=== PATIENT | male | born 1965 | race Caucasian/White ===

== ENCOUNTER 2016-05-28 11:00 | Observation (INO) | payer MEDICARE, MEDICAID ==
[2016-05-28 11:31] VITALS: BMI 24.3
[2016-05-28 11:50] LABS: ALL NEG? NO
[2016-05-28 12:05] LABS: AUTOMATED BASOPHIL 0.2 % (0-2); AUTOMATED MONOCYTE 9.8 % (3-10); MPV 7.9 fL (7.4-10.4)
[2016-05-28 12:12] LABS: LEUKOCYTES/URINE NEG (NEGATIVE); NITRITE/URINE NEG (NEGATIVE); RBC/URINE 0-2 (0-2); URINE OCCULT BLOOD 2+ (NEG/TRACE); WBC/URINE 0-2 (0-2)
[2016-05-28 12:14] LABS: MDMA* *POSITIVE* (NEGATIVE); METHAMPHETAMINES *POSITIVE* (NEGATIVE); OXYCODONE NEG (NEGATIVE)
[2016-05-28 12:29] LABS: BLOOD UREA NITROGEN 65 MG/DL (9-20); CALCIUM 8.7 MG/DL (8.4-10.2); CALCULATED OSMOLALITY 297 MOs/Kg (270-290); CHLORIDE 102 mEq/L (98-107); ETOH-MGDL < 10 mg/dL; GLUCOSE 182 MG/DL (70-99); SODIUM LEVEL 142 mEq/L (137-146)
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
[2016-05-28] MEDS ORDERED: MAGNESIUM HYDROXIDE 30 ML BOTTLE PO PRN (15:13)
[2016-05-28] MEDS ORDERED: ONDANSETRON HCL 4 MG ODT TAB PO PRN (15:13)
[2016-05-28] MEDS ORDERED: LORAZEPAM 1 MG TAB PO PRN (15:13)
[2016-05-28] MEDS ORDERED: IBUPROFEN 400 MG TAB PO PRN (15:13)
[2016-05-28] MEDS ORDERED: ZOLPIDEM TARTRATE 5 MG TAB PO PRN (15:13)
[2016-05-28] MEDS ORDERED: Aluminum;Magnesium;Simethicone 30 ML UDC PO PRN (15:13)
[2016-05-28] MEDS ORDERED: NS 1,000 ML IV ONE (15:14)
[2016-05-28] MEDS ORDERED: NICOTINE 21 MG PATCH TOP SCH (16:00)
[2016-05-28] MEDS ORDERED: FLUTICASONE PROPIONATE 16 GM BOT NAS SCH (16:00)
[2016-05-28] MEDS ORDERED: RALTEGRAVIR 400 MG TAB PO SCH (21:00)
[2016-05-29 00:43] VITALS: BP 119/63; PULSE 66; TEMP 99
[2016-05-29] MEDS ORDERED: [UNRECOGNIZED DRUG - OTHER] PO SCH (09:00)
[2016-05-29] MEDS ORDERED: DOXYCYCLINE 100 MG/TAB PO SCH (09:00)
[2016-05-29] MEDS ORDERED: DOXYCYCLINE MONOHYDRATE 100 MG PO SCH (09:00)
[2016-05-29] MEDS ORDERED: FLUTICASONE PROPIONATE 16 GM BOT NAS SCH (09:00)
[2016-05-29] MEDS ORDERED: VALACYCLOVIR HCL 1000 MG PO SCH (09:00)
[2016-05-29] MEDS ORDERED: VALACYCLOVIR HCL 500 MG CAPLET PO SCH (09:00)
== END 2016-05-29 01:36 | disposition home or self-care (01) ==
LOC: ED 11:00 → EDINP 15:12 → TUOBSINP 17:23
PROVIDERS: ADMIT Physician Assistant Medical; ATTEND Physician Assistant Medical
DX: F19.10 Other psychoactive substance abuse, uncomplicated (principal); B20 Human immunodeficiency virus [HIV] disease; F23 Brief psychotic disorder; F17.210 Nicotine dependence, cigarettes, uncomplicated; Z79.899 Other long term (current) drug therapy
CPT/HCPCS: 36415; 80053; 80307; 81001; 85025; 86361; 86592; 87536; 96360; 99284; A9270; G0378; J3490

== ENCOUNTER 2016-06-16 07:44 | Emergency (ER) | payer MEDICARE, MEDICAID ==
[2016-06-16] MEDS ORDERED: KETOROLAC TROMETHAMINE 10 MG TAB PO ONE (07:52)
[2016-06-16] MEDS ORDERED: PREDNISONE 20 MG TAB PO ONE (07:52)
--- NOTE | 2016-06-16 07:54 | EDPRACDOC ---
- General Information Chief Complaint: Shoulder Injury Stated Complaint: LT SHOULDER PAIN Time Seen by Provider: 06/16/16 07:49 Home Medications: Home Medications Doxycycline Monohydrate [Monodox] 100 mg PO DAILY 05/28/16 Emtricitabine/Tenofovir [Truvada 200 mg-300 mg Tablet] 1 tab PO DAILY 05/28/16 Fluticasone Propionate [Flonase] 1 - 2 spray BIA DAILY 05/28/16 Raltegravir Potassium [Isentress] 400 mg PO BID 05/28/16 Valacyclovir HCl [Valtrex] 1,000 mg PO DAILY 05/28/16 Ketorolac Tromethamine [Toradol] 10 mg PO Q6H PRN #20 tab 06/16/16 Allergies/Adverse Reactions: Allergies Allergy/AdvReac Type Severity Reaction Status Date / Time codeine Allergy Nausea/Vomi Verified 06/16/16 07:54 ting - History of Present Illness HPI: PATIENT FELL ON LEFT SHOULDER PAIN OVER EDGE OF ACROMION EVER SINCE. WORSE WITH MOVEMENT. Description: Reports: With Use Location: Reports: Left Circumstances: Reports: Fall Relevant History: Reports: None Tetanus Up To Date?: Yes Dominant Hand: Right Pain Severity: Mild Able to Move Shoulder?: Yes Associated Signs & Symptoms: Reports: None ED Past Medical History - History Reviewed Yes Nurses notes reviewed and agree except as marked Travel Outside of [place] in the Last 3 Months?: No - Patient Medical History Psychological History: Denies: Depression Systemic History: Reports: HIV - Social Medical History Smoking Status: Heavy tobacco smoker (5 or more cigarettes/day or daily pipe/ cigar) ETOH: None Substance Abuse: None Lives With: Family Lives In: Home EDM Review of Systems - Review of Systems ROS Negative Except as Marked: Yes All systems reviewed and were negative except as marked Constitutional: No Symptoms Reported. negative: Fever, Chills, Weakness, Fatigue, Loss of Appetite Eyes: No Symptoms Reported. negative: Redness, Blurred Vision, Double Vision, Discharge, Pain, Light Sensitive, Photophobia Ears: No Symptoms Reported. negative: Pain, Hearing Loss, Drainage, Ear Pulling Throat: No Symptoms Reported. negative: Pain, Swelling Nose: No Symptoms Reported. negative: Congestion, Bleeding, Discharge, Injection, Swelling, Deformity, Ecchymosis, Tender, Abrasion, Laceration Mouth: No Symptoms Reported. negative: Pain, Drooling Respiratory: No Symptoms Reported. negative: Cough, Brassy Cough, Barky Cough, Shortness of Breath, Wheezing, Hemoptysis Cardiovascular: No Symptoms Reported. negative: Chest Pain, Palpitations, Syncope, Edema, Orthopnea, PND, Skin Mottling, Cyanosis Gastrointestinal: No Symptoms Reported. negative: Pain, Constipation, Nausea, Vomiting, Diarrhea, Melena, Formula Intolerance Genitourinary: No Symptoms Reported. negative: Dysuria, Hematuria, Frequency, Discharge, Bleeding, Testicular Pain, Neurological: No Symptoms Reported. negative: Headache, Dizziness, Seizure, Numbness, Weakness, Speech Difficulty, Gait Difficulty Musculoskeletal: Shoulder. negative: Arm, Ankle, Back, Chestwall, Elbow, Forearm, Femur, Foot, Hand, Hip, Knee, Leg, Neck, Pelvis, Ribs, Wrist Integumentary: No Symptoms Reported. negative: Itching, Rash, Bruising, Wound Allergic/Immunologic: No Symptoms Reported. negative: Hives, Itching Hematologic: No Symptoms Reported. negative: Lymphadenopathy, Easy Bruising, Easy Bleeding Endocrine: No Symptoms Reported. negative: Weight Gain, Weight Loss Psychiatric: No Symptoms Reported. negative: Anxiety, Depression, Hallucinations, Insomnia, Suicidal - Physical Exam Constitutional: Alert (Awake), No apparent distress Oriented to: Time, Person, Place Last recorded Vital Signs: Oxygen Pulse Oxygen Saturation O2 Device Oxygen Flow Rate Fraction of Inspired Oxygen ( FIO2) - HEENT Head: Normal ( normocephalic) Eye Exam: Normal (PERRL, EOMI, Sclera white) Oropharynx: Normal (Pharynx:Moist without exudate,Gums-no swelling) Tympanic Membrane: Normal ENT EAC: Normal TMJ: Normal Nose: No Symptoms Reported (septum midline) Neck: Normal (FROM, trachea at midline) - Respiratory/Cardiovascular Respiratory: Normal - CTA (BBS clear to auscultation without adventitious sounds ) Cardiovascular: Normal (RRR without murmur, gallop or rub) - GI Auscultation: Normal (NABS) Palpation: Normal (Soft,No rebound or guarding, non distended) Tenderness: Non tender Kent's Sign: Negative - Musculoskeletal Back: Normal (Non-Tender) Extremities: Normal (Normal tone, Pulses 2+ No cyanosis or edema, FROM) - Integumentary Skin: Normal, Warm, Dry Lymphatics: Normal (no adenopathy) - Neurologic Memory Impaired: Normal Motor Function: Normal (Normal tone, Pulses 2+ No cyanosis or edema, FROM) Cranial Nerve: Normal (CN II-X11 intact sensation, strength 5/5) Cerebellar: Normal Mood Description: Normal Perception: Normal ED Shoulder Problem Exam - Musculoskeletal Clavicle: Normal Shoulder: Limited ROM (TENDER JUST DISTAL TO ACROMION) Drop arm test: Negative Impingement test: Negative Arm: Normal Distal Function/Circulation: Normal Decision Time to Discharge: 08:11 - Departure Yes I personally saw and evaluated the patient. Disposition: Home Condition: Good Final Diagnosis: Injury of left rotator cuff Qualifiers: Encounter type: initial encounter Qualified Code(s): S46.002A - Unspecified injury of muscle(s) and tendon(s) of the rotator cuff of left shoulder, initial encounter Instructions: Rotator Cuff Injury (ED) Education/Counseling Given To: Patient Education/Counseling Given Regarding: Diagnosis, Treatment, Prognosis, Follow Up Referrals: None,No Provider [Primary Care Provider] - One Week Sujit Bacon MD [Staff Physician] - One Week Prescriptions: Ketorolac Tromethamine [Toradol] 10 mg PO Q6H PRN #20 tab PRN Reason: Pain
[2016-06-16 07:55] VITALS: BP 160/99; PULSE 66; TEMP 97.8; BMI 26.1
--- NOTE | 2016-06-16 08:07 | DIRPT ---
CLINICAL DATA: Fall. EXAM: LEFT SHOULDER - 2+ VIEW COMPARISON: 04/02/2009 . FINDINGS: No acute bony or joint abnormality identified. Mild degenerative changes about the acromioclavicular glenohumeral joint. IMPRESSION: Mild acromioclavicular glenohumeral degenerative change. No acute abnormality. Electronically Signed By: Edilson Hickman On: 06/16/2016 08:04
== END 2016-06-16 08:25 | disposition home or self-care (01) ==
LOC: ED 07:44
DX: S46.002A Unspecified injury of muscle(s) and tendon(s) of the rotator cuff of left shoulder, initial encounter (principal); W19.XXXA Unspecified fall, initial encounter; F17.210 Nicotine dependence, cigarettes, uncomplicated; Z21 Asymptomatic human immunodeficiency virus [HIV] infection status; Z79.899 Other long term (current) drug therapy
CPT/HCPCS: 73030; 99283; A9270; J3490

== ENCOUNTER 2016-06-22 10:18 | Emergency (ER) | payer MEDICARE, MEDICAID ==
[2016-06-22 10:18] VITALS: BMI 26.1
[2016-06-22 10:55] VITALS: BP 130/86; PULSE 68; TEMP 98.3
--- NOTE | 2016-06-22 11:16 | EDPRACDOC ---
- General Information Chief Complaint: Medication Refill Stated Complaint: MED REFILL (LT SHOULDER INJURY) Time Seen by Provider: 06/22/16 11:05 Mode Of Arrival: Car Home Medications: Home Medications Doxycycline Monohydrate [Monodox] 100 mg PO DAILY 05/28/16 Emtricitabine/Tenofovir [Truvada 200 mg-300 mg Tablet] 1 tab PO DAILY 05/28/16 Fluticasone Propionate [Flonase] 1 - 2 spray BIA DAILY 05/28/16 Raltegravir Potassium [Isentress] 400 mg PO BID 05/28/16 Valacyclovir HCl [Valtrex] 1,000 mg PO DAILY 05/28/16 Ketorolac Tromethamine [Toradol] 10 mg PO Q6H PRN #30 tab 06/22/16 Allergies/Adverse Reactions: Allergies Allergy/AdvReac Type Severity Reaction Status Date / Time codeine Allergy Nausea/Vomi Verified 06/16/16 07:54 ting - History of Present Illness Duration Without Medication: N/A HPI: Pt states seen last week for shoulder injury and has appointment on with Dr Bacon. Pt request refill on toradol for pain. States it helps the best. Denies new injury. R hand dominate. Context: Reports: Ran out of Medication Medication for: Reports: Pain Pain: Reports: Moderate ED Past Medical History - History Reviewed Yes Nurses notes reviewed and agree except as marked - Patient Medical History Psychological History: Denies: Depression Systemic History: Reports: HIV - Social Medical History Smoking Status: Heavy tobacco smoker (5 or more cigarettes/day or daily pipe/ cigar) ETOH: None Substance Abuse: None EDM Review of Systems - Review of Systems Constitutional: No Symptoms Reported. negative: Fever, Chills, Weakness, Fatigue, Loss of Appetite Neurological: No Symptoms Reported. negative: Headache, Dizziness, Seizure, Numbness, Weakness, Speech Difficulty, Gait Difficulty Musculoskeletal: Shoulder Integumentary: No Symptoms Reported. negative: Itching, Rash, Bruising, Wound Allergic/Immunologic: No Symptoms Reported. negative: Hives, Itching Hematologic: No Symptoms Reported. negative: Lymphadenopathy, Easy Bruising, Easy Bleeding Psychiatric: No Symptoms Reported. negative: Anxiety, Depression, Hallucinations, Insomnia, Suicidal - Physical Exam Constitutional: Alert (Awake), No apparent distress Oriented to: Time, Person, Place Last recorded Vital Signs: Last Vital Signs Temp 98.3 F 06/22/16 10:51 Pulse 68 06/22/16 10:51 Resp 18 06/22/16 10:51 BP 130/86 06/22/16 10:51 Pulse Ox 98 06/22/16 10:51 Oxygen Pulse Oxygen Saturation 98 O2 Device Room Air Oxygen Flow Rate Fraction of Inspired Oxygen ( FIO2) - HEENT Head: Normal ( normocephalic) - Respiratory/Cardiovascular Respiratory: Normal - CTA (BBS clear to auscultation without adventitious sounds ) Cardiovascular: Normal (RRR without murmur, gallop or rub) - Musculoskeletal Extremities: Normal (Normal tone, Pulses 2+ No cyanosis or edema, FROM) - Integumentary Skin: Normal, Warm, Dry Lymphatics: Normal (no adenopathy) - Neurologic Memory Impaired: Normal Motor Function: Normal (Normal tone, Pulses 2+ No cyanosis or edema, FROM) Mood Description: Normal Perception: Normal - Differential Diagnosis Medication Refill Decision Time to Discharge: 11:15 - Departure Disposition: Home Condition: Good Final Diagnosis: Medication refill Instructions: Medication Refill Education/Counseling Given To: Patient Education/Counseling Given Regarding: Diagnosis, Treatment, Follow Up Referrals: None,No Provider [Primary Care Provider] - One Week Jesus Carrillo MD [Staff Physician] - One Week Prescriptions: Continue Ketorolac Tromethamine [Toradol] 10 mg PO Q6H PRN #30 tab PRN Reason: Pain No Action Raltegravir Potassium [Isentress] 400 mg PO BID Fluticasone Propionate [Flonase] 1 - 2 spray BIA DAILY Valacyclovir HCl [Valtrex] 1,000 mg PO DAILY Emtricitabine/Tenofovir [Truvada 200 mg-300 mg Tablet] 1 tab PO DAILY Doxycycline Monohydrate [Monodox] 100 mg PO DAILY Forms: Primary / Family Care Contact
== END 2016-06-22 11:28 | disposition home or self-care (01) ==
LOC: ED 10:18 → EDMC 11:28
DX: Z76.0 Encounter for issue of repeat prescription (principal)
CPT/HCPCS: 99282